=== PATIENT | male | born 1985 | race Caucasian/White ===

== ENCOUNTER 2017-09-24 17:50 | Emergency (ER) | END 2017-09-24 18:23 | disposition home or self-care (01) ==

== ENCOUNTER → 2018-09-07 | Emergency (ER) | payer MEDICAID ==
[~2018-09-07] VITALS: Wt 59.0 kg
[~2018-09-07] MED LIST: AZIT250T PO; BENZ-6 PO; CETI10CA PO; D-ME473S2 PO; NAPH15DR69 BOTH EYES; POLY10DR BOTH EYES
[2018-09-07 14:27] VITALS: BP 133/84; PULSE 97; RESP 18
--- NOTE | 2018-09-07 15:18 | ERD ---
ER Documentation Chief Complaint Chief Complaint COUGH FOR THE PAST WEEK. NO DISTRESS NOTED. NO FEVERS. HPI Patient is a 33-year-old female male who presents to the ER for concerns of cough times 1 week. Patient states his cough is dry in nature. Patient states his been taking NyQuil with minimal alleviation of symptoms. Patient denies any chest pain, shortness of breath, nausea, vomiting, fevers, chills or LOC. Patient denies any hemoptysis. No recent travel. No sick contacts. ROS All systems reviewed and are negative except as per history of present illness. Medications Home Meds Active Scripts Azithromycin* (Zithromax*) 250 Mg Tablet, 250 MG PO .ZPACK DIRECTED, #6 TAB TAKE 500 MG (2 TABS) THE FIRST DAY THEN 250 MG (1 TAB) DAYS 2-5 Prov:JOSY NICHOLAS PA-C 09/07/18 Dextromethorphan Hb-Promethazine Hcl* (Promethazine DM* Syrup) 473 Ml Syrup, 5 ML PO Q6 PRN for COUGH, #4 OZ Prov:JOSY NICHOLAS PA-C 09/07/18 Benzonatate* (Tessalon Perle*) 100 Mg Capsule, 100 MG PO Q8H PRN for COUGH, #20 CAP Prov:JOSY NICHOLAS PA-C 09/07/18 Polymyxin/Trimethoprim* (Polytrim* Eye Drops) 10 Ml Drops, 1 DROP BOTH EYES QID for 7 Days, EA Prov:UGO DUBOIS NP 09/24/17 Cetirizine Hcl* (Zyrtec*) 10 Mg Capsule, 10 MG PO DAILY, #30 TAB Prov:UGO DUBOIS NP 09/24/17 Naphazoline-Pheniramine* (Visine-A*) 15 Ml Drops, 2 DROP BOTH EYES Q4H PRN for RED EYES, #1 BOT Prov:UGO DUBOIS NP 09/24/17 Allergies Allergies: Coded Allergies: No Known Allergy (Unverified , 09/24/17) PMhx/Soc History of Surgery: Yes (Appendectomy) Hx Alcohol Use: No Hx Substance Use: No Hx Tobacco Use: No FmHx Family History: No diabetes Physical Exam Vitals Vital Signs Date Temp Pulse Resp B/P (MAP) Pulse Ox O2 O2 Flow FiO2 Time Delivery Rate 09/07/18 99.2 97 18 133/84 98 14:27 (100) Physical Exam GENERAL: Well-developed, well-nourished male. Appears in no acute distress. HEAD: Normocephalic, atraumatic. No deformities or ecchymosis. EYE: Pupils equal, round, and reactive to light. EOMs intact. No conjunctival erythema. No eye discharge. ENT: External ear without any masses or tenderness. Auditory canals clear bilaterally. TM visualized bilaterally, non-erythematous, non-bulging. Nasal mucosa pink with no discharge. Oropharynx is pink without any tonsillar erythema or exudates. No uvula deviation. No kissing tonsils. NECK: Supple. No meningismus. Normal ROM of the neck. LUNG: Clear to auscultation bilaterally. No rhonchi, wheezing, rales or coarse breath sounds. HEART: Regular rate and rhythm. No murmurs, rubs or gallops. EXTREMITES: Equal pulses bilaterally. No peripheral clubbing, cyanosis or edema. No unilateral leg swelling. NEUROLOGIC: Alert and oriented to person, place and time. Moving all four extremities. 5/5 strength in all extremities. Normal speech. Steady gait. SKIN: Normal color. Warm and dry. No rashes or lesions. Procedures/MDM MEDICAL DECISION MAKING: This is a 33-year-old male who presents the ER for cough times 1 week. Patient denying chest pain, shortness breath or LOC.. Patient was afebrile. Patient was not hypoxic. Patient denied recent travel. Cardiac exam was normal. Lung exam was normal. at this time, patient's presentation was consistent with bronchitis. Low suspicion for acute coronary syndrome, pneumothorax, pneumonia, TB, PE, influenza, pertussis, GERD, allergic rhinitis. PRESCRIPTIONS: Z-Neymar, Tessalon Perles, promethazine DM cough syrup DISCHARGE: At this time, patient is stable for discharge and outpatient management. I have instructed the patient to follow-up with his/her primary care physician in 1-2 days. If symptoms persist, patient may need to see a specialist for further examinations and testing. I have instructed the patient to promptly return to the ER at any time for any new or worsening symptoms including increased increased pain, fever, nausea, vomiting, numbness, shortness of breath, weakness, ongoing wheezing, retractions or LOC. The patient and/or family expressed understanding of and agreement with this plan. All questions were answered. Home care instructions were provided. Disclaimer: Inadvertent spelling and grammatical errors are likely due to EHR/dictation software use and do not reflect on the overall quality of patient care. Also, please note that the electronic time recorded on this note does not necessarily reflect the actual time of the patient encounter. Departure Diagnosis: Primary Impression: Bronchitis Condition: Fair Patient Instructions: Bronchitis, Antiobiotic Treatment (Adult) [facility] Usted se yoon hecho un examen mdico de control que le indica que no est en [place] condicin que requiera tratamiento urgente en el Departamento de Emergencia. Un estudio ms profundo y el tratamiento de huber condicin pueden esperar sin ningn riesgo hasta que usted sea atendida/o en el consultorio de huber mdico o whitney clnica. Es responsabilidad suya arreglar whitney gibran para el seguimiento del afshan. MANEJO DE CONDICIONES NO URGENTES EN EL FUTURO 1) Si usted tiene un mdico de atencin primaria: Usted debera llamar a huber mdico de atencin primaria antes de venir al departamento de emergencia. Despus de las horas de consultorio, huber doctor o huber asociado/a est disponible por telfono. El mdico o enfermero de mariia en el servicio telefnico puede asesorarle por penny medio para atender el problema, o afshan contrario se puede programar whitney gibran. 2) Si usted no tiene un mdico de atencin primaria: Llame al mdico o clnica de referencia que aparece abajo cassandra las horas de consultorio para hacer whitney gibran para que le vean. CLINICAS: [facility] [phone] [address] [facility] 088 [phone] [address] [facility] [phone] [facility] 211 [phone] [place] [id number] [phone] [facility]. [phone] [address] [facility]. [facility] () Usted se yoon hecho un examen mdico de control que le indica que no est en whitney condicin que requiera tratamiento urgente en el Departamento de Emergencia. Un estudio ms profundo y el tratamiento de huber condicin pueden esperar sin ningn riesgo hasta que usted sea atendida/o en el consultorio de huber mdico o whitney clnica. Es responsabilidad suya arreglar whitney gibran para el seguimiento del afshan. MANEJO DE CONDICIONES NO URGENTES EN EL FUTURO 1) Si usted tiene un mdico de atencin primaria: Usted debera llamar a huber mdico de atencin primaria antes de venir al departamento de emergencia. Despus de las horas de consultorio, huber doctor o huber asociado/a est disponible por telfono. El mdico o enfermero de mariia en el servicio telefnico puede asesorarle por penny medio para atender el problema, o afshan contrario se puede programar whitney gibran. 2) Si usted no tiene un mdico de atencin primaria: Llame al mdico o condado institucions de referencia que aparece abajo cassandra las horas de consultorio para hacer whitney gibran para que le vean. SI USTED NO PUEDE PAGAR PARA JUNE UN MEDICO puede ir a: [facility] [address] [place] [address] [facility] [address] [place] [address] [facility] [address] [place] [address] [facility] [address] [place] [address] Additional Instructions: Call your primary care doctor TOMORROW for an appointment during the next 1-2 days.See the doctor sooner or return here if your condition worsens before your appointment time. JOSY NICHOLAS PA-C Sep 07, 2018 15:18
== END | disposition home or self-care (01) ==
LOC: FTE 14:24
DX: J40 Bronchitis, not specified as acute or chronic (principal)